=== PATIENT | female | born 1955 | race Hispanic/Latino ===

== ENCOUNTER → 2020-10-31 | Outpatient (CLI) | payer BC | END | disposition home or self-care (01) | LOC: OIH 14:26 | PROVIDERS: ATTEND Internal Medicine | DX: S92.912A Unspecified fracture of left toe(s), initial encounter for closed fracture (principal); M79.89 Other specified soft tissue disorders; X58.XXXA Exposure to other specified factors, initial encounter; Y93.89 Activity, other specified; Y92.89 Other specified places as the place of occurrence of the external cause; Y99.8 Other external cause status | CPT/HCPCS: 73620 ==

== ENCOUNTER 2024-06-21 12:39 | Emergency (ER) | payer BC, MEDICARE ==
[~2024-06-21] VITALS: Ht 160 cm; Wt 78.5 kg
[2024-06-21] MEDS: ASPIRIN 325MG TAB PO ONE (13:20)
[2024-06-21 13:45] LABS: BASOPHILS # (AUTO) 0.05 K/uL (0.00-0.20); BASOPHILS % (AUTO) 0.7 % (0.0-5.0); EOSINOPHILS # (AUTO) 0.21 K/uL (0.00-0.70); EOSINOPHILS % (AUTO) 2.9 % (0.0-8.0); HEMATOCRIT 42.6 % (36-48); IMMATURE GRANULOCYTE ABSOLUTE 0.04 K/uL (0-1); LYMPHOCYTES # (AUTO) 2.7 K/uL (1.0-4.8); LYMPHOCYTES % (AUTO) 36.4 % (21.0-51.0); MEAN CORPUSCULAR HEMOGLOBIN 32.5 pg (27.0-33.0); MEAN CORPUSCULAR HGB CONC 33.8 g/dL (32.0-36.0); MEAN CORPUSCULAR VOLUME 96.2 fL (79-99); MONOCYTES # (AUTO) 0.6 K/uL (0.1-1.0); NEUTROPHILS # (AUTO) 3.8 K/uL (1.8-7.7); NEUTROPHILS % (AUTO) 51.5 % (40.0-77.0); PLATELET COUNT (AUTO) 323 K/uL (130-400); RED BLOOD CELL COUNT(AUTO) 4.43 MIL/uL (4.00-5.50); RED CELL DISTRIBUTION WIDTH 11.6 % (11.0-15.5); WHITE BLOOD COUNT (AUTO) 7.3 K/uL (4.8-10.8)
[2024-06-21 13:53] LABS: CREATININE 0.8 mg/dL (0.5-1.0); POTASSIUM 3.5 mmol/L (3.5-5.1)
[2024-06-21 14:14] LABS: B-TYPE NATRIURETIC PEPTIDE 47 pg/mL (0-100)
[2024-06-21 14:46] LABS: APPEARANCE,URINE CLEAR (CLEAR); BILIRUBIN,URINE NEGATIVE (NEGATIVE); COLOR,URINE COLORLESS (YELLOW); GLUCOSE, URINE (UA) NEGATIVE (NEGATIVE); KETONES,URINE NEGATIVE (NEGATIVE); LEUKOCYTE ESTERASE ,URINE NEGATIVE Leu/uL (NEGATIVE); NITRATE,URINE NEGATIVE (NEGATIVE); OCCULT BLOOD,URINE NEGATIVE (NEGATIVE); PH,URINE 6.5 (5.0-8.0); PROTEIN,URINE NEGATIVE (NEGATIVE); UROBILINOGEN,URINE 0.2 mg/dL (0.2-1.0)
[2024-06-21 14:54] LABS: ADD UA MICROSCOPIC NO
[2024-06-21 15:24] VITALS: RESP 17
[2024-06-21] MEDS: NITROGLYCERIN 0.4 MG SL TAB SL PRN (15:25)
[2024-06-21 17:41] VITALS: BP 120/63; PULSE 63; TEMP 98.4; O2SAT 98
== END 2024-06-21 17:42 | disposition home or self-care (01) ==
LOC: EDH 12:39
DX: R07.89 Other chest pain (principal); Z90.710 Acquired absence of both cervix and uterus
CPT/HCPCS: 36415; 71045; 80048; 81003; 83880; 84484; 85025; 93005

== ENCOUNTER → 2024-06-30 | Outpatient (CLI) | payer BC ==
[~2024-06-30] MED LIST: IOHEXOL 350 MG/ML 100ML INFUS..BTL IV ONE; metoPROLOL tartRATE 1 MG/ML 5ML VIAL IV ONE
== END | disposition home or self-care (01) ==
LOC: RAH 10:26
PROVIDERS: ATTEND Student in an Organized Health Care Education/Training Program
DX: R94.31 Abnormal electrocardiogram [ECG] [EKG] (principal)
CPT/HCPCS: 75574; J3490; Q9967

== ENCOUNTER 2024-08-15 08:30 | Observation (INO) | payer MEDICARE, BC ==
[~2024-08-15] VITALS: Ht 160 cm; Wt 82.6 kg
--- NOTE | 2024-08-15 08:54 | EKG ---
[facility] Test Date: 2024-08-15 Test Time: 08:53:39 Pat Name: DEBI HENSLEY Department: EDH Room: ED Gender: F Environmental Planner: [id number] : [id number] Requested By: UMA ALEXIS Order Number: [id number] Reading MD: Valentín Lay Measurements Intervals [place] Rate: 58 P: 44 CO: 147 QRS: -49 QRSD: 90 T: -6 QT: 419 QTc: 410 Interpretive Statements Sinus rhythm Left anterior fascicular block Compared to ECG 06/21/2024 12:49:06 No significant changes Electronically Signed On 08-15-2024 21:09:32 HONEY LIQUEFIER by Valentín Lay Please click the below link to view image of tracing.
--- NOTE | 2024-08-15 08:58 | NUR ---
PT JUST NOW PLACED IN MY HALLWAY C
[2024-08-15 09:10] LABS: APPEARANCE,URINE CLEAR (CLEAR); BILIRUBIN,URINE NEGATIVE (NEGATIVE); COLOR,URINE COLORLESS (YELLOW); GLUCOSE, URINE (UA) NEGATIVE (NEGATIVE); KETONES,URINE NEGATIVE (NEGATIVE); LEUKOCYTE ESTERASE ,URINE NEGATIVE Leu/uL (NEGATIVE); NITRATE,URINE NEGATIVE (NEGATIVE); OCCULT BLOOD,URINE NEGATIVE (NEGATIVE); PROTEIN,URINE NEGATIVE (NEGATIVE); UROBILINOGEN,URINE 0.2 mg/dL (0.2-1.0)
[2024-08-15 09:11] LABS: ADD UA MICROSCOPIC NO
--- NOTE | 2024-08-15 09:20 | NUR ---
PT JUST NOW RETURNED FROM RADIOLOGY
--- NOTE | 2024-08-15 09:21 | ERN ---
ED Note History of Present Illness Stated Complaint: CHEST PRESSURE, SOB Chief Complaint: Chest Wall Pain Time Seen by MD: 08:21 Allergies: Coded Allergies: No Known Drug Allergies (Unverified Allergy, Intermediate, 06/21/24) Past Medical History Dictation Patient is a 69-year-old female with a past medical history of heart disease who presents to the ED with chest pain that started at 7:30 a.m. patient states she has had some pressure in the chest for several weeks but the pain started today. Patient mentions she sees sees a helpdesk technician who has prescribed her nitroglycerin for chest pain but she did not take it this morning. Patient has a scheduled on September 08, 2024. Patient denies any weakness, radiating pain, nausea, vomiting, fevers, chills. Patient admits to worsening shortness of breath with daily activities. She also has intermittent headaches when exercising. She has a history of smoking but quit 2 years ago. Past Medical History: GERD, Heart Disease Surgical History: Hysterectomy, Other Surgical History Other: CARPAL TUNNEL Review of System Dictation Constitutional-no chills, weight loss/gain, fever Eyes-no injury, pain, redness and discharge ENT-no injury, pain, swelling Cardiovascular no palpitations, edema. Positive for chest pain. Respiratory- no cough, wheezing. Positive for SOB with activity Abdomen/GI-no abdominal pain, diarrhea, constipation, vomiting, nausea Back no injury and pain Genitourinary no injury, bleeding and discharge Musculoskeletal/extremities no injury, deformity Skin no rash, discoloration Neuro-no weakness, numbness, tingling, seizures, tremors. Positive for frontal headaches with exercise Psych-no suicidal ideation, homicidal ideation, hallucinations, depression, anxiety, memory loss Initial Vital Sign VS Vital Signs Date Time Temp Pulse Resp B/P (MAP) Pulse Ox O2 Delivery O2 Flow Rate FiO2 08/15/24 08:32 97.9 71 16 123/76 99 Room Air 0 08/15/24 09:59 21 Physical Exam Dictation General-patient is awake alert and oriented Head/neck-normocephalic, atraumatic Eyes-PERRL, EOMI, vision at baseline Neck-trachea midline, supple, no nuchal rigidity Cardiovascular-RRR, normal S1/S2, no MRG is, no JVD Respiratory-no distress, wheezing, rales, rhonchi Abdomen-no tenderness, guarding, soft, nondistended Skin warm, dry, normal turgor, no rash Musculoskeletal/extremities pulses equal, no cyanosis. No edema Neuro-COA X 4, GCS 15, strength 5/5, CN 2-12 intact Psych-normal behavior, mood and affect normal Results (Laboratory/Radiology) Laboratory/Radiology Laboratory Tests Test 08/15/24 09:01 08/15/24 09:28 Urine Color COLORLESS (YELLOW) Urine Appearance CLEAR (CLEAR) Urine pH 6.0 (5.0-8.0) Urine Specific [place] 1.005 (1.001-1.031) Urine Protein NEGATIVE mg/dL (NEGATIVE) Urine Glucose (UA) NEGATIVE mg/dL (NEGATIVE) Urine Ketones NEGATIVE mg/dL (NEGATIVE) Urine Occult Blood NEGATIVE (NEGATIVE) Urine Nitrate NEGATIVE (NEGATIVE) Urine Bilirubin NEGATIVE mg/dL (NEGATIVE) Urine Urobilinogen 0.2 mg/dL (0.2-1.0) Urine Leukocyte Esterase NEGATIVE Alison/uL White Blood Count 6.5 K/uL (4.8-10.8) Red Blood Count 4.34 MIL/uL (4.00-5.50) Hemoglobin 14.2 g/dL (12.0-16.0) Hematocrit 42.3 % (36-48) Mean Corpuscular Volume 97.5 fL (79-99) Mean Corpuscular Hemoglobin 32.7 pg (27.0-33.0) Mean Corpuscular Hemoglobin Concent 33.6 g/dL (32.0-36.0) Red Cell Distribution Width 11.7 % (11.0-15.5) Platelet Count 313 K/uL (130-400) Mean Platelet Volume 10.8 fL (7.5-10.5) H Immature Granulocyte % (Auto) 0.3 % (0-1) Neutrophils (%) (Auto) 58.3 % (40.0-77.0) Lymphocytes (%) (Auto) 30.0 % (21.0-51.0) Monocytes (%) (Auto) 7.6 % (3.0-13.0) Eosinophils (%) (Auto) 3.2 % (0.0-8.0) Basophils (%) (Auto) 0.6 % (0.0-5.0) Neutrophils # (Auto) 3.8 K/uL (1.8-7.7) Lymphocytes # (Auto) 2.0 K/uL (1.0-4.8) Monocytes # (Auto) 0.5 K/uL (0.1-1.0) Eosinophils # (Auto) 0.21 K/uL (0.00-0.70) Basophils # (Auto) 0.04 K/uL (0.00-0.20) Absolute Immature Granulocyte (auto 0.02 K/uL (0-1) Nucleated Red Blood Cells 0.0 % (0.0-0.19) Sodium Level 141 mmol/L (136-145) Potassium Level 4.1 mmol/L (3.5-5.1) Chloride Level 107 mmol/L (101-111) Carbon Dioxide Level 29 mmol/L (21-32) Blood Urea Nitrogen 12 mg/dL (7-18) Creatinine 0.8 mg/dL (0.5-1.0) Glomerular Filtration Rate Calc 81 mL/min (>90) Random Glucose 95 mg/dL (70-105) Total Calcium 9.7 mg/dL (8.5-10.1) Troponin I High Sensitivity 4 ng/L (4-50) Labs Reviewed?: Yes EKG Comment: EKG obtained 08/15/2024 at 08:53:39 Sinus rhythm Rate [address] elevations/depressions X-RAY Comment: CXR FINDINGS: A frontal projection of the chest was obtained. No acute pulmonary infiltrates is seen. The heart is borderline enlarged. There is mild dextroscoliosis. Degenerative changes are seen. No evidence of aortic calcification is seen. IMPRESSION: 1. No acute pulmonary infiltrate is seen. ED Course ED Course Orders Procedure Category Date Status Time Cbc With Differential LAB 08/15/24 Complete 08:37 Basic Metabolic Panel LAB 08/15/24 Complete 08:37 Troponin I High LAB 08/15/24 Complete Sensitivity 08:37 12 Lead Ekg Tracing- EKG 08/15/24 Complete Technical 08:37 Chest 1vw RAD 08/15/24 Resulted 08:37 Urinalysis Profile LAB 08/15/24 Complete 08:37 Nitroglycerin 0.4mg PHA 08/15/24 In Process Sl Tab (Nitrostat) 09:00 Troponin I High LAB 08/15/24 Logged Sensitivity 10:31 Aspirin 325mg Tab PHA 08/15/24 Complete (Aspirin 325mg Tab) 11:00 Current Medications Medications (Trade) Dose Ordered Sig/Igor Route PRN Reason Start Time Stop Time Status Last Admin Dose Admin Aspirin (Aspirin 325mg Tab) 325 mg ONCE ONCE PO 08/15/24 11:00 08/15/24 11:01 DC Nitroglycerin (Nitrostat) 0.4 mg AD PRN SL CHEST PAIN 08/15/24 09:00 09/14/24 08:59 Vital Signs Date Time Temp Pulse Resp B/P (MAP) Pulse Ox O2 Delivery O2 Flow Rate FiO2 08/15/24 09:59 63 17 119/59 100 Room Air* 0 21 08/15/24 08:32 97.9 71 16 123/76 99 Room Air 0 HEART Score Response (Comments) Value History: High suspicion (+2) 2 EKG: Repolarization changes 1 Age: > 65yrs (+2) 2 Risk Factors: 3+ risk factors (+2) 2 Initial Troponin: Normal limit (0) 0 HEART Score Risk: High Risk for MACE (7-10) Total 7 Medical Decision Making MDM MDM INITIAL IMPRESSION Initial history and physical concerning for chest pain Contributing medical problems: Heart disease I have reviewed the triage nursing notes and vital signs. Initial plan: Laboratory evaluation EKG, CXR DATA REVIEW I have reviewed additional NN, repeat VS, and monitoring where indicated. Heart rate, blood pressure, and O2 saturation are acceptable. [place] diagnostic results: Troponin 4 Other independent historian: Review of external data: ED COURSE Interventions: ASA, SL nitro Reassessment: Chest pain resolved 1109- Dr. Mak consult, accepts patient for admission 111- Dr. Dang Esquivel Cardiology consult DISPOSITION Final diagnostic impression: High risk of major adverse cardiac event I discussed my findings, clinical impression and treatment recommendations with the patient. My final plan for disposition was made based upon -mild risk of complications and potential morbidity of the patient's condition. -Discussion with the patient regarding management options. Patient will be admitted for further evaluation of chest pain Critical Care Note Critical Time: other (Total critical care time was 33 minutes. Excluding time for procedures. Management of critically ill patient with concern for acute decompensation. Management included interpretation of laboratory values and imaging, hemodynamics, time for consultation with consultants and admitting physician.) DX & DISP Disposition: Inpatient Decision to Admit Date: Aug 15, 2024 Decision to Admit Time: 10:46 Departure Impression: Primary Impression: High risk of cardiac event Additional Impressions: Heart disease, Chest pain, CAD (coronary artery disease) Condition: Stable Referrals: ISMAEL PEARCE MD (PCP) I have reviewed, & agreed with my scribe's, documentation. (Entered by Maritza Kraft, acting as a scribe for Dr. Alexis) I have reviewed the case I have examined patient I personally scribed for UMA ALEXIS MD (JAMIL) on 08/15/24 at 11:15. Electronically submitted by Maritza Kraft ([employer]). I personally scribed for UMA ALEXIS MD (JAMIL) on 08/15/24 at 11:16. Electronically submitted by Maritza Kraft ([employer]). SOLIS ERNANDEZ MD Aug 15, 2024 09:21 UMA ALEXIS MD Aug 15, 2024 11:15
--- NOTE | 2024-08-15 09:50 | HMCIMG ---
CHEST 1VW HISTORY: Chest pain COMPARISON: 06/21/2024 FINDINGS: A frontal projection of the chest was obtained. No acute pulmonary infiltrates is seen. The heart is borderline enlarged. There is mild dextroscoliosis. Degenerative changes are seen. No evidence of aortic calcification is seen. IMPRESSION: 1. No acute pulmonary infiltrate is seen.
[2024-08-15 09:52] LABS: BASOPHILS # (AUTO) 0.04 K/uL (0.00-0.20); BASOPHILS % (AUTO) 0.6 % (0.0-5.0); EOSINOPHILS # (AUTO) 0.21 K/uL (0.00-0.70); EOSINOPHILS % (AUTO) 3.2 % (0.0-8.0); HEMATOCRIT 42.3 % (36-48); IMMATURE GRANULOCYTE ABSOLUTE 0.02 K/uL (0-1); MEAN CORPUSCULAR HEMOGLOBIN 32.7 pg (27.0-33.0); MEAN CORPUSCULAR HGB CONC 33.6 g/dL (32.0-36.0); MEAN CORPUSCULAR VOLUME 97.5 fL (79-99); MONOCYTES # (AUTO) 0.5 K/uL (0.1-1.0); MONOCYTES % (AUTO) 7.6 % (3.0-13.0); NEUTROPHILS # (AUTO) 3.8 K/uL (1.8-7.7); NEUTROPHILS % (AUTO) 58.3 % (40.0-77.0); PLATELET COUNT (AUTO) 313 K/uL (130-400); RED BLOOD CELL COUNT(AUTO) 4.34 MIL/uL (4.00-5.50); RED CELL DISTRIBUTION WIDTH 11.7 % (11.0-15.5); WHITE BLOOD COUNT (AUTO) 6.5 K/uL (4.8-10.8)
[2024-08-15 10:09] LABS: CREATININE 0.8 mg/dL (0.5-1.0); POTASSIUM 4.1 mmol/L (3.5-5.1)
--- NOTE | 2024-08-15 11:40 | NUR ---
CARDIOLOGY CONSULT: DIDIER MORRISSEY HERE TO ASSESS/INTERVIEW PT.
[2024-08-15] MEDS: ENOXAPARIN SODIUM 80 MG/0.8 ML SQ ONE (12:24)
[2024-08-15] MEDS: ASPIRIN 325MG TAB PO ONE (12:25)
--- NOTE | 2024-08-15 12:30 | NUR ---
PT REFUSED LUNCH TRAY AT THIS TIME.
--- NOTE | 2024-08-15 12:38 | CONS ---
[facility] CARDIOLOGY CONSULTATION REPORT Date Patient Seen: Aug 15, 2024 Time of Visit: 12:23 Requesting Physician: Nicolas Mak MD Reason for Consultation: Chest pain, CAD History of Present Illness: This is a 69-year-old Latin-Syrian female with a history of 50 year history of tobacco use (quit 2-1/2 years ago), more recently identified to have an abnormal Lexiscan Cardiolite stress test approximately 03/31/2024 demonstrating a large area of perfusion defect in the inferior wall with a gated EF of 88% and a heavily calcified proximal RCA by CT coronary angiogram on 06/30/2024 presented to the emergency department due to sharp stabbing left-sided chest pain. This morning, she walked about 20 ft to her truck and developed sharp left-sided chest pain about 3 episodes duration lasting only about a second each. Her symptoms resolved. She turned on her truck and when she got off the truck, she again had 3 sharp stabbing pains to the left side of her chest but developed shortness of breath. Her shortness of breath lasted about 10-15 minutes. There was no associated chest pressure, diaphoresis, nausea, vomiting, palpitations, near-syncope or syncope. She presented to the ER for further assessment due to her history of chest pain recently. She reports that she has had recent substernal chest discomfort described as chest pressure, nonradiating with minimal activities around her home or ambulating short distances with the associated dyspnea. This prompted the above studies including the CT coronary angiogram. She is scheduled for left heart catheterization 09/08/2023. She has had symptoms of chest pressure almost daily with her last episode occurring on 08/13/2024 requiring 1 nitroglycerin on 2 separate occasions. She denies any prior history of FL, diabetes, CVA, hyperlipidemia, or GI bleeding tendencies. An EKG in the emergency department has demonstrated a normal sinus rhythm with left anterior fascicular block pattern and nonspecific T-wave changes and a heart rate of 58 beats per minute. Labs were remarkable for a troponin of 4 and a repeat troponin of 4, CBC and basic metabolic panel were unremarkable. A chest x-ray demonstrates borderline cardiomegaly but no CHF. Past Medical History: Fifty year history of tobacco use, quit 2-1/2 years ago Past Surgical History: Left carpal tunnel surgery 2022 Right carpal tunnel surgery October 20, 2022 Partial hysterectomy 1988 Family History: Mother with history of CAD Social History: The patient lives with spouse. 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 Habits: Former 50 year history of tobacco use. Occasional alcohol consumption. Denies illicit drug use Home Meds: None Review of Systems: CONST: No fever, fatigue, or weight changes. EYES: No recent vision problems. ENT: No congestion, ear pain, or sore throat. C/V: Chest pain as per HPI. Dyspnea on exertion. No palpitations, or edema. RESP: No cough, congestion, wheezing or shortness of breath. GI: No abdominal pain, nausea, vomiting, constipation, or diarrhea. : No incontinence or dysuria. SKIN: No rash. NEURO: No headache, focal numbness or weakness, dizziness, or seizures. PSYCH: No depression or anxiety. HEME: No abnormal bruising or bleeding. LYMPH: No swollen glands. Physical Examination: GENERAL: No acute distress. HEAD: Normal with no signs of head trauma. EYES: PERRLA, EOMI, conjunctiva and sclera normal. ENT: Hearing grossly intact, normal oropharynx. NECK: Supple without JVD. There is no tenderness, lymphadenopathy, or masses. No thyromegaly. Normal carotid upstrokes without bruits. LUNGS: Clear breath sounds bilaterally. No wheezes, or rhonchi. HEART: Normal rate and rhythm. Normal S1 and S2 without murmurs, gallop or rub. VASC: Peripheral pulses +2 bilaterally. ABD: Bowel sounds normal, soft, nontender, no masses, no organomegaly. No audible bruits. : Not examined LYMPH: No lymphadenopathy noted. EXT: No clubbing, cyanosis or edema. SKIN: No rashes or lesions noted. NEURO: Awake, alert, and oriented x3. No focal sensory or strength deficits noted. Vital Signs (last 8hr) Date Time Temp Pulse Resp B/P (MAP) Pulse Ox O2 Delivery O2 Flow Rate FiO2 08/15/24 09:59 63 17 119/59 100 Room Air* 0 21 08/15/24 08:32 97.9 71 16 123/76 99 Room Air 0 Laboratory: Hematology Labs: Test 08/15/24 09:28 Range/Units White Blood Count 6.5 4.8-10.8 K/uL Red Blood Count 4.34 4.00-5.50 MIL/uL Hemoglobin 14.2 12.0-16.0 g/dL Hematocrit 42.3 36-48 % Mean Corpuscular Volume 97.5 79-99 fL Mean Corpuscular Hemoglobin 32.7 27.0-33.0 pg Mean Corpuscular Hemoglobin Concent 33.6 32.0-36.0 g/dL Red Cell Distribution Width 11.7 11.0-15.5 % Platelet Count 313 130-400 K/uL Mean Platelet Volume 10.8 H 7.5-10.5 fL Immature Granulocyte % (Auto) 0.3 0-1 % Neutrophils (%) (Auto) 58.3 40.0-77.0 % Lymphocytes (%) (Auto) 30.0 21.0-51.0 % Monocytes (%) (Auto) 7.6 3.0-13.0 % Eosinophils (%) (Auto) 3.2 0.0-8.0 % Basophils (%) (Auto) 0.6 0.0-5.0 % Neutrophils # (Auto) 3.8 1.8-7.7 K/uL Lymphocytes # (Auto) 2.0 1.0-4.8 K/uL Monocytes # (Auto) 0.5 0.1-1.0 K/uL Eosinophils # (Auto) 0.21 0.00-0.70 K/uL Basophils # (Auto) 0.04 0.00-0.20 K/uL Absolute Immature Granulocyte (auto 0.02 0-1 K/uL Nucleated Red Blood Cells 0.0 0.0-0.19 % Chemistry Labs: Test 08/15/24 11:23 08/15/24 09:28 Range/Units Troponin I High Sensitivity < 4 L 4-50 ng/L Sodium Level 141 136-145 mmol/L Potassium Level 4.1 3.5-5.1 mmol/L Chloride Level 107 101-111 mmol/L Carbon Dioxide Level 29 21-32 mmol/L Blood Urea Nitrogen 12 7-18 mg/dL Creatinine 0.8 0.5-1.0 mg/dL Glomerular Filtration Rate Calc 81 >90 mL/min Random Glucose 95 70-105 mg/dL Total Calcium 9.7 8.5-10.1 mg/dL Diagnostics / Radiology: Chest x-ray 08/15/2024 demonstrated borderline cardiomegaly, no CHF Impression and Plan: Atypical chest pain on presentation: Exertional angina pectoris and dyspnea on exertion: Abnormal Lexiscan Cardiolite stress test approximately 03/31/2024 demonstrating moderate inferior defect with a gated EF of 88%: Coronary artery disease with abnormal heart Saver CT coronary angiogram 06/30/2024 demonstrating heavily calcified proximal RCA : -The patient has ruled out for acute myocardial ischemia thus far with no evidence of ischemia on EKG, and 2- high sensitivity troponins within normal limits -she has experienced substernal chest pressure almost daily requiring use of sub lingual nitroglycerin suggestive of unstable angina -begin aspirin 325 mg p.o. daily, begin atorvastatin 40 mg p.o. daily -obtain a lipid panel to assess her lipid status -we will proceed with plans for invasive cardiac assessment while inpatient to define her coronary anatomy. Risks, benefits and alternatives of heart catheterization included but not limited to 0.1% risk of [place], stroke or have been discussed and she wishes to proceed -we will keep the patient NPO after midnight with plans to proceed with cardiac catheterization in a.m. PHYSICIAN ATTESTATION OF PHYSICIAN HAMMER DRIVER DOCUMENTATION: I attest that I was physically present for the rider portions of the service and evaluated the patient with the Physician [employer] Industrial [employer] Teacher, and I reviewed and discussed the case with the Physician [employer] Industrial Arts Teacher and made modifications to the Physician [employer] Industrial Arts Teacher's findings and plans of care as documented above DIDIER DAVIDSON Aug 15, 2024 12:38 EMILY HUBER MD Aug 16, 2024 10:22
--- NOTE | 2024-08-15 12:45 | NUR ---
CARDIOLOGY CONSULT: DIDIER MORRISSEY RETURNED AND STATED THAT SHE WOULD PLACE ORDERS FOR A HEART CATH FOR TOMORROW.
--- NOTE | 2024-08-15 12:51 | NUR ---
DR PEREZ HERE TO SEE THE PT
[2024-08-15 13:09] LABS: INR <= 0.93 (0.85-1.15); PROTHROMBIN TIME 10.3 SEC (9.6-11.6)
[2024-08-15 13:11] LABS: PARTIAL THROMBOPLASTIN TIME 28.7 SEC (26.3-35.5)
[2024-08-15 13:15] LABS: CHOLESTEROL 213 mg/dL (<200); HDL CHOLESTEROL 88 mg/dL (35-85); LDL DIRECT 100 mg/dL (0-99); TRIGLYCERIDES 102 mg/dL (30-200)
--- NOTE | 2024-08-15 14:16 | NUR ---
REPORT ENDORSED TO BET RN
[2024-08-15] MEDS: atorVAStatin 40 MG TABLET PO SCH (20:50)
--- NOTE | 2024-08-16 02:05 | HP ---
HISTORY OF PRESENT ILLNESS: This is a patient of Dr. Valladares, who came to the emergency room complaining of chest pain, pressure type that had been bothering her for the last few weeks. She was seen by doctor, clinical massage therapist. The patient apparently has had recent workup and is scheduled to have an angiogram on 09/08/2024. The patient also is complaining of shortness of breath with minimal effort. REVIEW OF SYSTEMS: No fever, chills, seizures, loss of consciousness. No diplopia, dysarthria, dysphonia or dysphagia. No sore throat. No cough, wheezes, or rhonchi. The patient is complaining of chest pain at rest, midsternal, associated with shortness of breath with minimal activity. No abdominal pain. No nausea, vomiting, or diarrhea. No dysuria, urgency, or frequency. No rashes, petechiae or ecchymoses. No hallucinations or delusions. No suicidal ideation. No weakness, numbness, tingling, or tremors. PAST MEDICAL HISTORY: Coronary artery disease and GERD. ALLERGIES: No known drug allergies. MEDICATIONS: As indicated in the chart. PHYSICAL EXAMINATION: GENERAL: She is awake, alert, oriented in person, time, and place, comfortable, sitting in wheelchair in the emergency room, awake, alert, oriented in person, time, and place, not in distress. VITAL SIGNS: In the chart. HEENT: Normocephalic, atraumatic. LUNGS: Clear to auscultation. HEART: S1, S2 are distant. ABDOMEN: Soft and nontender. No masses. EXTREMITIES: No clubbing or cyanosis. No edema. LABORATORY, DIAGNOSTIC AND IMAGING DATA: Urinalysis within normal limits. WBC count 6.5, hemoglobin 14.2, platelets 313. Sodium 141, potassium 4.1, creatinine 0.8. Troponin 4. EKG was reported as sinus rhythm, 58 per minute, no ST elevation or depression. Chest x-ray without any acute infiltrates or effusions. ASSESSMENT AND PLAN: Chest pain. The patient apparently on recent workup by clinical massage therapist pending cardiac catheterization in the near future. We are going to start her on standard treatment for acute coronary syndrome, have a Cardiology consultation. Follow recommendations by Cardiology. The patient will be transferred to Dr. Valladares's care for primary. Continue with trending cardiac enzymes. Follow up in a.m. with laboratories. DOS: 08/15/2024 TID: [id number] RECEIPT: [id number] MTDD
[2024-08-16 07:08] LABS: BASOPHILS # (AUTO) 0.04 K/uL (0.00-0.20); BASOPHILS % (AUTO) 0.7 % (0.0-5.0); EOSINOPHILS # (AUTO) 0.27 K/uL (0.00-0.70); EOSINOPHILS % (AUTO) 4.5 % (0.0-8.0); HEMATOCRIT 41.2 % (36-48); IMMATURE GRANULOCYTE ABSOLUTE 0.02 K/uL (0-1); LYMPHOCYTES # (AUTO) 2.1 K/uL (1.0-4.8); LYMPHOCYTES % (AUTO) 34.2 % (21.0-51.0); MEAN CORPUSCULAR HEMOGLOBIN 32.3 pg (27.0-33.0); MEAN CORPUSCULAR VOLUME 97.9 fL (79-99); MONOCYTES # (AUTO) 0.5 K/uL (0.1-1.0); MONOCYTES % (AUTO) 7.9 % (3.0-13.0); NEUTROPHILS # (AUTO) 3.2 K/uL (1.8-7.7); NEUTROPHILS % (AUTO) 52.4 % (40.0-77.0); PLATELET COUNT (AUTO) 301 K/uL (130-400); RED BLOOD CELL COUNT(AUTO) 4.21 MIL/uL (4.00-5.50); RED CELL DISTRIBUTION WIDTH 11.9 % (11.0-15.5); WHITE BLOOD COUNT (AUTO) 6.1 K/uL (4.8-10.8)
[2024-08-16 07:30] LABS: ALBUMIN 3.1 g/dL (3.5-5.0); BILIRUBIN,TOTAL 0.3 mg/dL (0.2-1.0); CREATININE 0.8 mg/dL (0.5-1.0); POTASSIUM 4.2 mmol/L (3.5-5.1); TOTAL PROTEIN, SERUM 6.4 g/dL (6.0-8.3)
--- NOTE | 2024-08-16 08:32 | PN ---
[facility] CARDIOLOGY PROGRESS NOTE Date Patient Seen: Aug 16, 2024 Time of Visit: 08:30 Interval History: [She reported 2 minutes of chest pressure this morning. ] Physical Examination: GENERAL: [No acute distress.] HEAD: [Normal with no signs of head trauma.] EYES: [PERRLA, EOMI, conjunctiva and sclera normal.] ENT: [Hearing grossly intact, normal oropharynx.] NECK: [Supple without JVD. There is no tenderness, lymphadenopathy, or masses. No thyromegaly. Normal carotid upstrokes without bruits.] LUNGS: [Clear breath sounds bilaterally. There are right basilar rales one third of the way up the chest. No wheezes, or rhonchi.] HEART: [Normal rate and rhythm. Normal S1 and S2 without mumurs, gallop or rub.] VASC: [Peripheral pulses +2 bilaterally.] ABD: [Bowel sounds normal, soft, nontender, no masses, no organomegaly. No audible bruits.] : [Not examined] LYMPH: [No lymphadenopathy noted.] EXT: [No clubbing, cyanosis or edema.] SKIN: [No rashes or lesions noted.] NEURO: [Awake, alert, and oriented x3. No focal sensory or strength deficits noted.] Laboratory: [ ] Hematology Labs: Test 08/16/24 06:26 Range/Units White Blood Count 6.1 4.8-10.8 K/uL Red Blood Count 4.21 4.00-5.50 MIL/uL Hemoglobin 13.6 12.0-16.0 g/dL Hematocrit 41.2 36-48 % Mean Corpuscular Volume 97.9 79-99 fL Mean Corpuscular Hemoglobin 32.3 27.0-33.0 pg Mean Corpuscular Hemoglobin Concent 33.0 32.0-36.0 g/dL Red Cell Distribution Width 11.9 11.0-15.5 % Platelet Count 301 130-400 K/uL Mean Platelet Volume 11.0 H 7.5-10.5 fL Immature Granulocyte % (Auto) 0.3 0-1 % Neutrophils (%) (Auto) 52.4 40.0-77.0 % Lymphocytes (%) (Auto) 34.2 21.0-51.0 % Monocytes (%) (Auto) 7.9 3.0-13.0 % Eosinophils (%) (Auto) 4.5 0.0-8.0 % Basophils (%) (Auto) 0.7 0.0-5.0 % Neutrophils # (Auto) 3.2 1.8-7.7 K/uL Lymphocytes # (Auto) 2.1 1.0-4.8 K/uL Monocytes # (Auto) 0.5 0.1-1.0 K/uL Eosinophils # (Auto) 0.27 0.00-0.70 K/uL Basophils # (Auto) 0.04 0.00-0.20 K/uL Absolute Immature Granulocyte (auto 0.02 0-1 K/uL Nucleated Red Blood Cells 0.0 0.0-0.19 % Chemistry Labs: Test 08/16/24 06:26 08/15/24 11:23 08/15/24 09:28 Range/Units Sodium Level 143 136-145 mmol/L Potassium Level 4.2 3.5-5.1 mmol/L Chloride Level 110 101-111 mmol/L Carbon Dioxide Level 28 21-32 mmol/L Blood Urea Nitrogen 20 H 7-18 mg/dL Creatinine 0.8 0.5-1.0 mg/dL Glomerular Filtration Rate Calc 81 >90 mL/min Random Glucose 105 70-105 mg/dL Total Calcium 9.4 8.5-10.1 mg/dL Total Bilirubin 0.3 0.2-1.0 mg/dL Aspartate Amino Transf (AST/SGOT) 18 10-37 U/L Alanine Aminotransferase (ALT/SGPT) 14 12-78 U/L Alkaline Phosphatase 114 50-136 U/L Total Protein 6.4 6.0-8.3 g/dL Albumin 3.1 L 3.5-5.0 g/dL Troponin I High Sensitivity < 4 L 4-50 ng/L Triglycerides Level 102 30-200 mg/dL Cholesterol Level 213 H <200 mg/dL LDL Cholesterol 100 H 0-99 mg/dL HDL Cholesterol 88 H 35-85 mg/dL Coagulation Labs: Test 08/15/24 09:28 Range/Units Prothrombin Time 10.3 9.6-11.6 SEC Prothromb Time International Ratio <= 0.93 0.85-1.15 Activated Partial Thromboplast Time 28.7 26.3-35.5 SEC Diagnostics / Radiology: [Copy/Paste Echos/Imaging Report here] Impression and Plan: [ Atypical chest pain on presentation: Exertional angina pectoris and dyspnea on exertion: Abnormal Lexiscan Cardiolite stress test approximately 03/31/2024 demonstrating moderate inferior defect with a gated EF of 88%: Coronary artery disease with abnormal heart Saver CT coronary angiogram 06/30/2024 demonstrating heavily calcified proximal RCA : -The patient has ruled out for acute myocardial ischemia thus far with no evidence of ischemia on EKG, and 2- high sensitivity troponins within normal limits -she has experienced substernal chest pressure almost daily requiring use of sublingual nitroglycerin suggestive of unstable angina -begin aspirin 325 mg p.o. daily, begin atorvastatin 40 mg p.o. daily -08/16 LDL 100, HDL 88, TG 102, Chol 213 -we will proceed with plans for invasive cardiac assessment while inpatient to define her coronary anatomy. Risks, benefits and alternatives of heart catheterization included but not limited to 0.1% risk of [place], stroke or have been discussed and she wishes to proceed -we will keep the patient NPO after midnight with plans to proceed with cardiac catheterization this ha Esquivel MD] FUNMILAYO ESQUIVEL MD Aug 16, 2024 08:32
[2024-08-16] MEDS: ASPIRIN 325MG TAB PO SCH (09:00)
[2024-08-16] MEDS: ENOXAPARIN SODIUM 40 MG/0.4 ML SYRINGE SQ SCH (09:00)
[2024-08-16] MEDS ORDERED: cloPIDOgrel 75MG TAB PO SCH (09:00)
[2024-08-16] MEDS: NITROGLYCERIN 0.4 MG SL TAB SL PRN (13:36)
[2024-08-16] MEDS ORDERED: NITR0.4T50 SL (13:57)
--- NOTE | 2024-08-16 15:47 | NUR ---
DCP: HOME Pt lives independently at home with her Jonathan Benavidez [id number]. Pt denies need for assist with ADLS, DME or in home care services. PCP is Leslee Valladares and uses [facility] for rx. Denies dc need and will return home at dc Addendum: 08/16/24 at 1547 by CLAUDIA ROUSE SS Amended: Links added.
[2024-08-16] MEDS ORDERED: LIDOCAINE HCL 400MG/20ML VIAL ONE (15:58)
[2024-08-16] MEDS ORDERED: SODIUM BICARB 50MEQ 50ML VIAL 50 ML ONE (15:59)
[2024-08-16] MEDS ORDERED: IOHEXOL 350 MG/ML 100ML INFUS..BTL IV ONE (15:59)
[2024-08-16] MEDS ORDERED: niCARDIpine 25MG INJ IV ONE (15:59)
[2024-08-16] MEDS ORDERED: HEParin 10,000 UNIT/10ML (1,000 UNIT/ML) VIAL ONE (15:59)
[2024-08-16] MEDS ORDERED: NITROGLYCERIN 50MG VIAL ONE (15:59)
[2024-08-16] MEDS ORDERED: HEParin-NS 1,000 UNIT/500 ML 1,000 ML IV ONE (15:59)
[2024-08-16] MEDS ORDERED: IOHEXOL-350 50ML VIAL IV ONE (15:59)
--- NOTE | 2024-08-16 16:03 | NUR ---
PT TRANSFERRED TO [facility] BY JAKE BENTON AT 1600, PT STABLE NO DISTRESS VITALS WNL NO C/O PAIN NOW. PT PERSONAL BELONGINGS TAKEN WITH JAKE BENTON.
[2024-08-16] MEDS ORDERED: BIVALIRUDIN 250 MG/VIAL IV ONE ×2 (16:14→17:29)
[2024-08-16] MEDS ORDERED: MIDAZOLAM HCL 1 MG/ML 2ML VIAL ONE (16:15)
[2024-08-16] MEDS ORDERED: FENTanyl CITRate PF 50 MCG/1 ML 2ML VIAL ONE (16:15)
[2024-08-16] MEDS ORDERED: TICAGrelor 90 MG TABLET ONE (17:00)
[2024-08-16] MEDS ORDERED: ATROPINE 1MG SYG IVP ONE (17:05)
[2024-08-16] MEDS ORDERED: HEParin-NS 1,000 UNIT/500 ML 500 ML IV ONE (17:22)
[2024-08-16] MEDS ORDERED: ASPIRIN 325MG EC TAB PO ONE (17:58)
--- NOTE | 2024-08-16 18:19 | PRN ---
LEFT HEART CATHETERIZATION, LEFT VENTRICULAR CINEANGIOGRAM, CORONARY ARTERIOGRAM, RIGHT CORONARY SHOCKWAVE LITHOTRIPSY, RIGHT CORONARY DRUG-ELUTING STENT IMPLANT, RIGHT INTRA CORONARY ULTRASOUND INDICATION: DISABLING ANGINA PECTORIS WITH CTA SUGGESTION OF RIGHT CORONARY STENOSIS TECHNIQUE: Patient was brought to the lab in a fasting state after informed consent and sedated with 1 mg Versed and 50 mcg fentanyl. Additional fentanyl was required during the procedure. Under local anesthesia with 1% lidocaine using micropuncture technique under fluoroscopic and ultrasound guidance, the right common femoral artery was punctured anteriorly and a six Afghan sheath was inserted. Left heart catheterization was carried out with a six Afghan angled pigtail and left ventricular cineangiography was performed in PEÑA projection. A pullback recording was obtained. An exchange was made for a six Afghan 4 cm right Caren with which we engaged the right coronary obtain right coronary angiograms in multiple projections. An exchange was made for a six Afghan 4 cm left Caren with which we engaged the left coronary obtain left coronary angiograms in multiple projections. Images were studied and preparation was made for intervention. The patient was treated with Angiomax according to protocol and 180 mg Brilinta and 325 mg aspirin were administered orally. The right coronary was cannulated with a 4 cm six Afghan a RT guide and we attempted to wire with a: Fiancee guidewire. This was unsuccessful so we exchanged for an extra-support Maintenance Planner wire with which we successfully wired the vessel. Using a GuideLiner we were able to advance a 1.5 mm balloon across the stenosis and dilate to 14 atmospheres but we had difficulty advancing a 2 mm balloon, which we acco mplished with some difficulty. We again pre-dilated. At this point we still could not advance a 4 mm shockwave balloon so we again pre-dilated with a 2.5 mm balloon. At this point we were able to advance a 4 mm shockwave and we treated with a total of 120 pulses. The last 70 pulses were administered at a nine atmosphere balloon pressure. At that point we are able to advance the GuideLiner through the lesion and we positioned a liz catheter to assess vessel diameter and condition of treated vessel. There was a minimal dissection at the edge of a heavily calcified lesion which was bulky and eccentric and at some points there was 270 calcification that had been successfully treated with a 2.5 x 3 mm MLD on a vessel that appeared to have a mean diameter of about 4 mm. The actual media was more like 5 mm diameter. We exchanged for a 4 x 18 mm Medtronic denver [place] drug-eluting stent which was deployed at a maximum pressure of 18 atmospheres. Results were reinspected and the vessel appeared properly treated. The guide and all other apparatus were removed and femoral arterial closure was accomplished with Perclose. No complications occurred; the patient was transferred from the lab in stable condition, having received 150 mL contrast. Results: Hemodynamics: LVEDP was 14 before ventriculography and 20 after. LV systolic pressure was 128 with aortic root pressure 130/60, mean 90. Ventriculography: Left ventricular cineangiography demonstrates hyperdynamic left ventricular function was 70% ejection fraction and normal wall motion. Mitral valve is competent. Coronary Arteriography: This is a right-dominant system. The right coronary is a very large vessel which supplies a large posterior descending and two large posterolateral. Proximal to the right ventricular marginal branch there is an eccentric heavily calcified 95-98% stenosis producing NACHO two flow. The left main is free of disease. The left anterior descending supplies a large diagonal and then bifurcates near the apex display a 2nd diagonal and distal branch. The left anterior descending is free of disease. The left circumflex supplies a tiny 1st obtuse marginal and then continues as a large lateral branch to the apex. The circumflex is free of disease. Intervention: 95-98% calcified eccentric mid vertical right coronary stenosis is reduced to a 0% residual with smooth intima and excellent strut apposition. NACHO three flow is established. Intravascular Ultrasound: This is an irregular but large caliber vessel with an average luminal diameter of about 4 mm through the vertical portion, tapering to about 3.5-3.8 mm before the PDA. Post stent results demonstrate a 3.8 mm MLD with excellent strut apposition and no exposed dissections or filling defects. Conclusions: Single-vessel coronary disease, super dominant right coronary, successful shockwave lithotripsy and drug-eluting stent to the right coronary. GRUPO CARVALHO MD Aug 16, 2024 18:19
--- NOTE | 2024-08-16 18:35 | NUR ---
TRANSFER pt transferred from [facility] lab to room 224 via bed pt awake alert right femoral dressing clean dry intact site soft non tender ,pulses present joey pedal pulses present
[2024-08-16] MEDS: 0.9%NACL 1000ML 1,000 ML IV SCH (19:00)
[2024-08-16 20:00] VITALS: O2SAT 97
[2024-08-16 21:06] VITALS: PULSE 18
--- NOTE | 2024-08-16 22:22 | PN ---
PROGRESS NOTE PROGRESS NOTE DATE OF PROGRESS NOTE: 08/16/24 SUBJECTIVE: no more chest pains VITAL SIGNS Vital Signs Date Time Temp Pulse Resp B/P (MAP) Pulse Ox O2 Delivery O2 Flow Rate FiO2 08/16/24 21:06 18 08/16/24 12:07 98.2 16 118/63 99 Room Air* 0 21 PHYSICAL EXAM: GENERAL: [No acute distress.] HEAD: [Normal with no signs of head trauma.] EYES: [PERRLA, EOMI, conjunctiva and sclera normal.] ENT: [Hearing grossly intact, normal oropharynx.] NECK: [Supple without JVD. There is no tenderness, lymphadenopathy, or masses. No thyromegaly. Normal carotid upstrokes without bruits.] LUNGS: [Clear breath sounds bilaterally. There are right basilar rales one third of the way up the chest. No wheezes, or rhonchi.] HEART: [Normal rate and rhythm. Normal S1 and S2 without mumurs, gallop or rub.] VASC: [Peripheral pulses +2 bilaterally.] ABD: [Bowel sounds normal, soft, nontender, no masses, no organomegaly. No audible bruits.] : [Not examined] LYMPH: [No lymphadenopathy noted.] EXT: [No clubbing, cyanosis or edema.] SKIN: [No rashes or lesions noted.] NEURO: [Awake, alert, and oriented x3. No focal sensory or strength deficits noted.] LABORATORY: Laboratory Result(s) Test 08/16/24 06:26 White Blood Count 6.1 K/uL (4.8-10.8) Red Blood Count 4.21 MIL/uL (4.00-5.50) Hemoglobin 13.6 g/dL (12.0-16.0) Hematocrit 41.2 % (36-48) Mean Corpuscular Volume 97.9 fL (79-99) Mean Corpuscular Hemoglobin 32.3 pg (27.0-33.0) Mean Corpuscular Hemoglobin Concent 33.0 g/dL (32.0-36.0) Red Cell Distribution Width 11.9 % (11.0-15.5) Platelet Count 301 K/uL (130-400) Mean Platelet Volume 11.0 fL (7.5-10.5) Immature Granulocyte % (Auto) 0.3 % (0-1) Neutrophils (%) (Auto) 52.4 % (40.0-77.0) Lymphocytes (%) (Auto) 34.2 % (21.0-51.0) Monocytes (%) (Auto) 7.9 % (3.0-13.0) Eosinophils (%) (Auto) 4.5 % (0.0-8.0) Basophils (%) (Auto) 0.7 % (0.0-5.0) Neutrophils # (Auto) 3.2 K/uL (1.8-7.7) Lymphocytes # (Auto) 2.1 K/uL (1.0-4.8) Monocytes # (Auto) 0.5 K/uL (0.1-1.0) Eosinophils # (Auto) 0.27 K/uL (0.00-0.70) Basophils # (Auto) 0.04 K/uL (0.00-0.20) Absolute Immature Granulocyte (auto 0.02 K/uL (0-1) Nucleated Red Blood Cells 0.0 % (0.0-0.19) Sodium Level 143 mmol/L (136-145) Potassium Level 4.2 mmol/L (3.5-5.1) Chloride Level 110 mmol/L (101-111) Carbon Dioxide Level 28 mmol/L (21-32) Blood Urea Nitrogen 20 mg/dL (7-18) Creatinine 0.8 mg/dL (0.5-1.0) Glomerular Filtration Rate Calc 81 mL/min (>90) Random Glucose 105 mg/dL (70-105) Total Calcium 9.4 mg/dL (8.5-10.1) Total Bilirubin 0.3 mg/dL (0.2-1.0) Aspartate Amino Transf (AST/SGOT) 18 U/L (10-37) Alanine Aminotransferase (ALT/SGPT) 14 U/L (12-78) Alkaline Phosphatase 114 U/L (50-136) Total Protein 6.4 g/dL (6.0-8.3) Albumin 3.1 g/dL (3.5-5.0) INPATIENT MEDS: Current Medications Medications Dose Ordered Sig/Igor Start Time Stop Time Status Last Admin Nitroglycerin 0.4 mg AD PRN 08/15/24 09:00 09/14/24 08:59 08/16/24 13:36 Atorvastatin Calcium 40 mg HS 08/15/24 21:00 09/14/24 20:59 08/15/24 20:50 Enoxaparin Sodium 40 mg DAILY 08/16/24 09:00 09/15/24 08:59 Ticagrelor 90 mg BID 08/16/24 21:00 09/15/24 20:59 Sodium Chloride 1,000 ml @ 150 mls/hr [id number] 08/16/24 18:00 08/16/24 23:59 Aspirin 81 mg DAILY 08/17/24 09:00 09/16/24 08:59 PROBLEM LIST: (1) CAD (coronary artery disease) ICD Code: I25.10 - Atherosclerotic heart disease of [place] coronary artery without angina pectoris (2) Heart disease ICD Code: I51.9 - Heart disease, unspecified (3) Chest pain ICD Code: R07.9 - Chest pain, unspecified (4) High risk of cardiac event ICD Code: Z91.89 - Other specified personal risk factors, not elsewhere cl assified PLAN: consult cardiology ISMAEL PEARCE MD Aug 16, 2024 22:22
[2024-08-16] MEDS: TICAGrelor 90 MG TABLET PO SCH (22:26)
[2024-08-17 00:19] VITALS: BP 117/71; PULSE 57; RESP 18; TEMP 98.6
[2024-08-17 03:43] LABS: HEMATOCRIT 38.3 % (36-48); MEAN CORPUSCULAR HGB CONC 33.9 g/dL (32.0-36.0); MEAN CORPUSCULAR VOLUME 97.2 fL (79-99); RED BLOOD CELL COUNT(AUTO) 3.94 MIL/uL (4.00-5.50); RED CELL DISTRIBUTION WIDTH 11.7 % (11.0-15.5); WHITE BLOOD COUNT (AUTO) 8.8 K/uL (4.8-10.8)
[2024-08-17 03:57] LABS: CREATININE 0.8 mg/dL (0.5-1.0); POTASSIUM 3.8 mmol/L (3.5-5.1)
[2024-08-17 04:20] VITALS: BP 121/76; PULSE 60; RESP 18; TEMP 98.8
[2024-08-17 07:00] VITALS: BP 125/68; PULSE 57; RESP 20; TEMP 98.5
--- NOTE | 2024-08-17 07:35 | PN ---
[facility] CARDIOLOGY PROGRESS NOTE Date Patient Seen: Aug 17, 2024 Time of Visit: 07:32 Interval History: [S/p lithiotripsy and PCI to RCA.] Physical Examination: GENERAL: [No acute distress.] HEAD: [Normal with no signs of head trauma.] EYES: [PERRLA, EOMI, conjunctiva and sclera normal.] ENT: [Hearing grossly intact, normal oropharynx.] NECK: [Supple without JVD. There is no tenderness, lymphadenopathy, or masses. No thyromegaly. Normal carotid upstrokes without bruits.] LUNGS: [Clear breath sounds bilaterally. There are right basilar rales one third of the way up the chest. No wheezes, or rhonchi.] HEART: [Normal rate and rhythm. Normal S1 and S2 without mumurs, gallop or rub.] VASC: [Peripheral pulses +2 bilaterally.] ABD: [Bowel sounds normal, soft, nontender, no masses, no organomegaly. No audible bruits.] : [Not examined] LYMPH: [No lymphadenopathy noted.] EXT: [No clubbing, cyanosis or edema.] SKIN: [No rashes or lesions noted.] NEURO: [Awake, alert, and oriented x3. No focal sensory or strength deficits noted.] Laboratory: [ ] Hematology Labs: Test 08/17/24 03:27 08/16/24 06:26 Range/Units White Blood Count 8.8 # 4.8-10.8 K/uL Red Blood Count 3.94 L 4.00-5.50 MIL/uL Hemoglobin 13.0 12.0-16.0 g/dL Hematocrit 38.3 36-48 % Mean Corpuscular Volume 97.2 79-99 fL Mean Corpuscular Hemoglobin 33.0 27.0-33.0 pg Mean Corpuscular Hemoglobin Concent 33.9 32.0-36.0 g/dL Red Cell Distribution Width 11.7 11.0-15.5 % Platelet Count 288 130-400 K/uL Mean Platelet Volume 10.7 H 7.5-10.5 fL Nucleated Red Blood Cells 0.0 0.0-0.19 % Immature Granulocyte % (Auto) 0.3 0-1 % Neutrophils (%) (Auto) 52.4 40.0-77.0 % Lymphocytes (%) (Auto) 34.2 21.0-51.0 % Monocytes (%) (Auto) 7.9 3.0-13.0 % Eosinophils (%) (Auto) 4.5 0.0-8.0 % Basophils (%) (Auto) 0.7 0.0-5.0 % Neutrophils # (Auto) 3.2 1.8-7.7 K/uL Lymphocytes # (Auto) 2.1 1.0-4.8 K/uL Monocytes # (Auto) 0.5 0.1-1.0 K/uL Eosinophils # (Auto) 0.27 0.00-0.70 K/uL Basophils # (Auto) 0.04 0.00-0.20 K/uL Absolute Immature Granulocyte (auto 0.02 0-1 K/uL Chemistry Labs: Test 08/17/24 03:27 08/16/24 06:26 08/15/24 11:23 Range/Units Sodium Level 145 136-145 mmol/L Potassium Level 3.8 3.5-5.1 mmol/L Chloride Level 111 101-111 mmol/L Carbon Dioxide Level 28 21-32 mmol/L Blood Urea Nitrogen 15 7-18 mg/dL Creatinine 0.8 0.5-1.0 mg/dL Glomerular Filtration Rate Calc 81 >90 mL/min Random Glucose 98 70-105 mg/dL Total Calcium 9.0 8.5-10.1 mg/dL Triglycerides Level 57 30-200 mg/dL Cholesterol Level 161 # <200 mg/dL LDL Cholesterol 78 0-99 mg/dL HDL Cholesterol 74 35-85 mg/dL Total Bilirubin 0.3 0.2-1.0 mg/dL Aspartate Amino Transf (AST/SGOT) 18 10-37 U/L Alanine Aminotransferase (ALT/SGPT) 14 12-78 U/L Alkaline Phosphatase 114 50-136 U/L Total Protein 6.4 6.0-8.3 g/dL Albumin 3.1 L 3.5-5.0 g/dL Troponin I High Sensitivity < 4 L 4-50 ng/L Coagulation Labs: Test 08/15/24 09:28 Range/Units Prothrombin Time 10.3 9.6-11.6 SEC Prothromb Time International Ratio <= 0.93 0.85-1.15 Activated Partial Thromboplast Time 28.7 26.3-35.5 SEC Diagnostics / Radiology: [Copy/Paste Echos/Imaging Report here] Impression and Plan: [ Atypical chest pain on presentation: Exertional angina pectoris and dyspnea on exertion: Abnormal Lexiscan Cardiolite stress test approximately 03/31/2024 demonstrating moderate inferior defect with a gated EF of 88%: Coronary artery disease with abnormal heart Saver CT coronary angiogram 06/30/2024 demonstrating heavily calcified proximal RCA : -The patient has ruled out for acute myocardial ischemia thus far with no evidence of ischemia on EKG, and 2- high sensitivity troponins within normal limits -she has experienced substernal chest pressure almost daily requiring use of sublingual nitroglycerin suggestive of unstable angina - atorvastatin 40 mg p.o. daily -08/16 LDL 100, HDL 88, TG 102, Chol 213; goal LDL <70 -s/p LHC with shock wave and SUGEY PCI 08/16/2024: This is a right-dominant system. The right coronary is a very large vessel which supplies a large posterior descending and two large posterolateral. Proximal to the right ventricular marginal branch there is an eccentric heavily calcified 95-98% stenosis. c/w DAPT 12-18 months (asa 81 mg qd, brillinta 90 mg bid) I will sign off. She may follow up two weeks after discharge. Dang Esquivel MD] DANG ESQUIVEL MD Aug 17, 2024 07:35
[2024-08-17 08:00] VITALS: O2SAT 100
--- NOTE | 2024-08-17 08:21 | EKG ---
[facility] Test Date: 2024-08-17 Test Time: 06:15:42 Pat Name: DEBI HENSLEY Department: [facility] Room: 224 1 Gender: F Child And Family Counselor: [id number] : 1955 Requested By: GRUPO CARVALHO Order Number: [id number] Reading MD: Francesco Parsons Measurements Intervals Stow Rate: 57 P: 7 GA: 154 QRS: -53 QRSD: 93 T: -21 QT: 444 QTc: 432 Interpretive Statements Sinus rhythm Left anterior fascicular block Compared to ECG 08/15/2024 08:53:39 No significant changes Electronically Signed On 08-17-2024 17:04:34 INTENSIVIST by Francesco Parsons Please click the below link to view image of tracing.
[2024-08-17] MEDS: ASPIRIN 81MG CHEW TAB PO SCH (09:33)
--- NOTE | 2024-08-17 12:30 | NUR ---
EKG ORDER CANCELLED PER DR. Donato LAFLEUR.
--- NOTE | 2024-08-17 13:00 | NUR ---
DISCHARGE INSTRUCTIONS WERE GIVEN TO THIS PATIENT AND SHE VOICED UNDERSTANDING TO ATTEND FOLLOW UP APPTS. PIV TO LEFT AC WAS REMOVED WITH CATHETER INTACT AND DRY DRESSING APPLIED. TELE HERI WAS REMOVED AND RETURNED. EDUCATION PROVIDED ON NEW MEDICATIONS AND SHE VOICED UNDERSTANDING. ALL BELONGINGS WERE TAKEN WITH THIS PATIENT AND WAS TAKEN TO PRIVATE VEHICLE VIA WHEELCHAIR.
--- NOTE | 2024-08-17 22:21 | DS ---
Discharge Summary DIAGNOSE(S): [ Atypical chest pain on presentation: Exertional angina pectoris and dyspnea on exertion: Abnormal Lexiscan Cardiolite stress test approximately 03/31/2024 demonstrating moderate inferior defect with a gated EF of 88%: Coronary artery disease with abnormal heart Saver CT coronary angiogram 06/30/2024 demonstrating heavily calcified proximal RCA : HOSPITAL COURSE SUMMARY: [-The patient has ruled out for acute myocardial ischemia thus far with no evidence of ischemia on EKG, and 2- high sensitivity troponins within normal limits -she has experienced substernal chest pressure almost daily requiring use of sublingual nitroglycerin suggestive of unstable angina - atorvastatin 40 mg p.o. daily -08/16 LDL 100, HDL 88, TG 102, Chol 213; goal LDL <70 -s/p LHC with shock wave and SUGEY PCI 08/16/2024: This is a right-dominant system. The right coronary is a very large vessel which supplies a large posterior descending and two large posterolateral. Proximal to the right ventricular marginal branch there is an eccentric heavily calcified 95-98% steno sis. c/w DAPT 12-18 months (asa 81 mg qd, brillinta 90 mg bid)]] DEVELOPMENT TECHNICAL LEAD(S): [Cardiology] PROCEDURE(S)/TREATMENT(S): [] PROBLEM(S): [] FOLLOW-UP TEST(S): [] DISCHARGE INSTRUCTIONS: [Follow up with me in 1-2 days] Home Meds Reported Medications Nitroglycerin (Nitroglycerin) 0.4 Mg Tab.subl, 1 TAB SL AD for angina 08/16/24 ISMAEL PEARCE MD Aug 17, 2024 22:21
[2024-08-20] MEDS ORDERED: ASPI-1005 PO (00:19)
[2024-08-20] MEDS ORDERED: TICA90TA PO (00:19)
[2024-08-20] MEDS ORDERED: ATOR40TA71 PO (00:19)
== END 2024-08-17 12:48 | disposition home or self-care (01) ==
LOC: EDH 08:30 → EDHIP 11:27 → 2DH 08-16 18:37
PROVIDERS: ADMIT Internal Medicine; ATTEND Internal Medicine
DX: I25.119 Atherosclerotic heart disease of native coronary artery with unspecified angina pectoris (principal); I44.4 Left anterior fascicular block; K21.9 Gastro-esophageal reflux disease without esophagitis; R51.9 Headache, unspecified; R06.02 Shortness of breath; Z90.711 Acquired absence of uterus with remaining cervical stump; Z79.82 Long term (current) use of aspirin; Z79.899 Other long term (current) drug therapy; Z87.891 Personal history of nicotine dependence
CPT/HCPCS: 96372 ×2; 84484 ×2; 80061 ×2; 80048 ×2; 85025 ×2; 85610; 85730; 81003; 36415 ×3; 71045; 99291; 93005 ×2; 93458; 92978; 92972; 80053; 85027; G0378 ×46; Q9965; J1650 ×2; C1769; C1894 ×2; C1725 ×2; C1874 ×2; C1887 ×2; C1760; C1761; C1753; J3010; J3490 ×3; J2250; J1644 ×2; J0583 ×2; Q9967 ×2; C9600; 99156; 99157; J0461

== ENCOUNTER → 2024-08-18 | Outpatient (CLI) | payer BC, MEDICARE ==
[~2024-08-18] MED LIST changes: +ASPI-1005 PO; +ATOR40TA71 PO; -IOHEXOL 350 MG/ML 100ML INFUS..BTL IV ONE; +NITR0.4T50 SL; +TICA90TA PO; -metoPROLOL tartRATE 1 MG/ML 5ML VIAL IV ONE
--- NOTE | 2024-08-18 12:59 | HMCIMG ---
CHEST 2VWS HISTORY: Coronary artery disease COMPARISON: 08/15/2024 FINDINGS: Frontal and lateral projections of the chest were obtained. There is no acute pulmonary infiltrates or failure. The heart is borderline enlarged. No evidence of aortic calcification is seen. Degenerative changes are seen of the thoracolumbar spine. IMPRESSION: 1. No acute pulmonary infiltrates.
== END | disposition home or self-care (01) ==
LOC: RAH 12:24
PROVIDERS: ATTEND Internal Medicine
DX: I25.10 Atherosclerotic heart disease of native coronary artery without angina pectoris (principal); M47.815 Spondylosis without myelopathy or radiculopathy, thoracolumbar region
CPT/HCPCS: 71046

== ENCOUNTER → 2024-09-06 | Outpatient (CLI) | payer BC ==
--- NOTE | 2024-09-06 14:40 | HMCIMG ---
CT HEAD/BRAIN W/O CONTRAST HISTORY: Unsteady gait COMPARISON: None TECHNIQUE: Multiple sequential axial images of the head were obtained from the base of the skull through vertex. Patient was not given contrast through intravenous route. FINDINGS: The ventricles and extraventricular CSF spaces are nondilated for patient's age. There is no midline shift, mass effect or herniation. No acute intracranial bleed is seen. Visualized portion of the paranasal sinuses are grossly within normal limits. IMPRESSION: 1. No acute intracranial bleed is seen. CT was performed with one or more following dose reduction techniques: automated exposure control, adjustment of the mA and kv according to patient's size, or use of a iterative reconstruction technique.
== END | disposition home or self-care (01) ==
LOC: RAH 13:45
PROVIDERS: ATTEND Student in an Organized Health Care Education/Training Program
DX: E87.8 Other disorders of electrolyte and fluid balance, not elsewhere classified (principal)
CPT/HCPCS: 70450

== ENCOUNTER → 2024-11-14 | Outpatient (CLI) | payer BC ==
[2024-11-14 16:44] LABS: ALBUMIN 3.6 g/dL (3.5-5.0); BILIRUBIN,TOTAL 0.4 mg/dL (0.2-1.0); CREATININE 0.7 mg/dL (0.5-1.0); POTASSIUM 3.9 mmol/L (3.5-5.1)
== END | disposition home or self-care (01) ==
LOC: LAB 13:40
PROVIDERS: ATTEND Student in an Organized Health Care Education/Training Program
DX: I25.10 Atherosclerotic heart disease of native coronary artery without angina pectoris (principal); R07.9 Chest pain, unspecified
CPT/HCPCS: 36415; 80053

== ENCOUNTER 2025-05-24 20:19 | Emergency (ER) | payer BC, MEDICARE ==
[~2025-05-24] VITALS: Ht 160 cm; Wt 78.0 kg
[~2025-05-24 20:19] MED LIST changes: +ACET-3859 PO; +CLOP75TA32 PO; -TICA90TA PO
--- NOTE | 2025-05-24 20:27 | ERN ---
ED Note History of Present Illness Stated Complaint: C/O PALPITATIONS WITH SOB Chief Complaint: Palpitations Time Seen by MD: 20:21 Dictation: This is a very pleasant 69-year-old female who presented to the emergency room with complaints of palpitations throughout the day today. She stated that occasionally she feels a palpitations transiently. She normally drinks 2 cups of coffee in the morning. 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 She was experiencing palpitations and also sweating. After she rested she continued to have intermittently and hence she came in for evaluation. In review of her medications she is also on Lasix twice a week. She denied any alcohol ingestion. No chest pain, presyncopal symptoms. No nausea vomitings diarrhea. No fever chills or rigors. Temperature 98.1 pulse 60 respirations 20 blood pressure 124/66 with a pulse oximetry of 100% on room air Her chronic medical problems include coronary artery disease status post PTCA with a drug-eluting stent to mid RCA in July of 2024, gastroesophageal reflux disease, hypercholesterolemia and history of a GI bleed. Allergies: Coded Allergies: No Known Drug Allergies (Unverified Allergy, Intermediate, 06/21/24) Home Meds Reported Medications Acetaminophen (Acetaminophen) 325 Mg Tablet, 1 TAB PO Q4HPRN PRN for pain or fever for 24 Days, #100 TAB 0 Refills 01/26/25 Clopidogrel Bisulfate (Clopidogrel) 75 Mg Tablet, 75 MG PO DAILY, TAB 01/23/25 Atorvastatin Calcium (Atorvastatin Calcium) 40 Mg Tablet, 1 TAB PO HS for 30 Days, #30 TAB 0 Refills 08/20/24 Aspirin (ASPIRIN 81MG CHEW TAB) 81 Mg Tab.chew, 81 MG PO DAILY, TAB.CHEW 08/20/24 Nitroglycerin (Nitroglycerin) 0.4 Mg Tab.subl, 1 TAB SL AD for angina 08/16/24 Past Medical History Past Medical History: Arrythmia, CAD, GERD, GI Bleed, High Cholesterol Surgical History: Other Surgical History Other: CARDIAC STENT Family History: Negative Social History: Negative History: Not Applicable RN Note Reviewed/Agreed w/PFSH: Yes Review of System Dictation Constitutional: Negative for fever,chills, and weight loss Eyes: Negative for injury, pain,redness, and discharge ENT: Negative for injury,pain or swelling Cardiovascular: Negative for chest pain,, and edema positive for palpitations Respiratory: Negative for shortness of breath, cough, and wheezing, Abdomen/GI: Negative for abdominal pain, nausea, vomiting, diarrhea, and constipation Back: Negative for injury and pain : Negative for injury, bleeding and discharge MS/Extremity: Negative for injury and deformity Skin: Negative for rash, and discoloration Neuro: Negative for headache, weakness, numbness, tingling, and seizure Psych: Negative for suicide ideation, homicidal ideation, and hallucinations Initial Vital Sign VS Vital Signs Date Time Temp Pulse Resp B/P (MAP) Pulse Ox O2 Delivery O2 Flow Rate FiO2 05/24/25 20:21 98.1 60 20 124/66 100 Room Air 05/24/25 20:38 0 21 Physical Exam Dictation General: awake, alert, NAD Head/Face: Normocephalic, atraumatic Eyes: PERRL, EOMI, vision at baseline ENT: oral cavity clear, TMs clear, no signs of infection mucous membranes are dry Neck: Trachea midline, supple, no nuchal rigidity Cardiovascular: RRR, normal S1/S2, No MRGs, no JVD Respiratory: CTAB, no respiratory distress, No rales or wheezes Abdomen: Soft, non-tender, non-distended, normal bowel sounds, no guarding or rebound. Skin: Warm, dry, skin turgor poor, no rash MS/Extremity: Pulses equal, no cyanosis, neurovascular intact, FROM Neuro: COAx4, GCS 15, strength 5/5, CN 2-12 intact, normal cerebellar exam, normal gait, Psych: Normal behavior, mood, and affect normal Extremities-trace edema without any palpable cords, Homans sign is negative Results (Laboratory/Radiology) Laboratory/Radiology Laboratory Tests Test 05/24/25 20:30 05/24/25 21:17 White Blood Count 8.4 K/uL (4.8-10.8) Red Blood Count 4.22 MIL/uL (4.00-5.50) Hemoglobin 13.9 g/dL (12.0-16.0) Hematocrit 41.1 % (36-48) Mean Corpuscular Volume 97.4 fL (79-99) Mean Corpuscular Hemoglobin 32.9 pg (27.0-33.0) Mean Corpuscular Hemoglobin Concent 33.8 g/dL (32.0-36.0) Red Cell Distribution Width 11.8 % (11.0-15.5) Platelet Count 308 K/uL (130-400) Mean Platelet Volume 10.5 fL (7.5-10.5) Immature Granulocyte % (Auto) 0.2 % (0-1) Neutrophils (%) (Auto) 55.0 % (40.0-77.0) Lymphocytes (%) (Auto) 33.3 % (21.0-51.0) Monocytes (%) (Auto) 7.6 % (3.0-13.0) Eosinophils (%) (Auto) 3.2 % (0.0-8.0) Basophils (%) (Auto) 0.7 % (0.0-5.0) Neutrophils # (Auto) 4.6 K/uL (1.8-7.7) Lymphocytes # (Auto) 2.8 K/uL (1.0-4.8) Monocytes # (Auto) 0.6 K/uL (0.1-1.0) Eosinophils # (Auto) 0.27 K/uL (0.00-0.70) Basophils # (Auto) 0.06 K/uL (0.00-0.20) Absolute Immature Granulocyte (auto 0.02 K/uL (0-1) Nucleated Red Blood Cells 0.0 % (0.0-0.19) Sodium Level 137 mmol/L (136-145) Potassium Level 3.3 mmol/L (3.5-5.1) L Chloride Level 103 mmol/L (101-111) Carbon Dioxide Level 25 mmol/L (21-32) Blood Urea Nitrogen 28 mg/dL (7-18) H Creatinine 0.8 mg/dL (0.5-1.0) Glomerular Filtration Rate Calc 81 mL/min (>90) Random Glucose 107 mg/dL (70-105) H Total Calcium 9.5 mg/dL (8.5-10.1) Magnesium Level 2.30 mg/dL (1.80-2.40) Troponin I High Sensitivity 6 ng/L (4-50) Urine Color COLORLESS (YELLOW) Urine Appearance CLEAR (CLEAR) Urine pH 6.5 (5.0-8.0) Urine Specific [place] 1.008 (1.001-1.031) Urine Protein NEGATIVE mg/dL (NEGATIVE) Urine Glucose (UA) NEGATIVE mg/dL (NEGATIVE) Urine Ketones NEGATIVE mg/dL (NEGATIVE) Urine Occult Blood NEGATIVE (NEGATIVE) Urine Nitrate NEGATIVE (NEGATIVE) Urine Bilirubin NEGATIVE mg/dL (NEGATIVE) Urine Urobilinogen 0.2 mg/dL (0.2-1.0) Urine Leukocyte Esterase 75 Alison/uL (NEGATIVE) H Urine RBC 0-1 /HPF (0-1) Urine WBC 2-5 /HPF (0-1) H Urine Squamous Epithelial Cells RARE /HPF (0-2) Urine Bacteria RARE /HPF (None Seen) Labs Reviewed?: Yes EKG Comment: Twelve lead EKG done on 05/24/2025 at 8:19 p.m. showed a heart rate of 63, OK interval 149, QRS duration 93, QT/QTC 424/435 Impression normal sinus rhythm with a no acute STT wave changes noted. Overall somewhat of a low voltage. EKG rhythm strip shows a normal sinus rhythm with nonspecific changes. Interpreted by ER MD Dr. Ott X-RAY Comment: CECILIA: PALPITATIONS ORDERING PHYSICIAN: GOLD OTT MD PROCEDURE: CXR1VW - CHEST 1VW EXAM: CR Chest, 1 view CLINICAL HISTORY: Palpitations. COMPARISON: Chest radiograph dated 01/20/2025. FINDINGS: The lungs show no infiltrates or other acute findings. No pleural effusion or pneumothorax. The cardiomediastinal silhouette is within normal limits. No acute osseous abnormality. IMPRESSION: No acute cardiopulmonary process is evident. Compared to the prior study, there is no significant interval change. /[place] DICTATED BY: JUANJOSE CARBALLO Jr., MD DATE: 05/24/252313 ELECTRONICALLY SIGNED BY: JUANJOSE CARBALLO Jr., MD DATE: 05/24/252313 ED Course ED Course Orders Procedure Category Date Status Time Cbc With Differential LAB 05/24/25 Complete 20:23 Basic Metabolic Panel LAB 05/24/25 Complete 20:23 Troponin I High LAB 05/24/25 Complete Sensitivity 20:23 Magnesium LAB 05/24/25 Complete 20:23 Iv Insertion CPOE 05/24/25 Transmitted 20:23 Chest 1vw RAD 05/24/25 Resulted 20:23 12 Lead Ekg Tracing- EKG 05/24/25 Logged Technical 20:23 12 Lead Ekg Tracing- EKG 05/24/25 Logged Technical 20:25 Urinalysis Profile LAB 05/24/25 Complete 20:25 0.9% Nacl 500ml PHA 05/24/25 Complete Iv.Soln (Ns 500ml 21:00 Culture Urine NANCY 05/24/25 In Process 21:27 Current Medications Medications (Trade) Dose Ordered Sig/Igor Route PRN Reason Start Time Stop Time Status Last Admin Dose Admin Sodium Chloride 500 ml @ 0 mls/hr ONCE ONCE IV 05/24/25 21:00 05/24/25 21:01 DC 05/24/25 21:22 Vital Signs Date Time Temp Pulse Resp B/P (MAP) Pulse Ox O2 Delivery O2 Flow Rate FiO2 05/24/25 21:39 98.6 64 20 132/72 99 Room Air* 0 21 05/24/25 20:38 98.4 68 18 148/78 98 Room Air* 0 21 05/24/25 20:21 98.1 60 20 124/66 100 Room Air Medical Decision Making MDM Differential diagnosis: Dehydration, cardiac event, caffeine related, thyroid disease This is a very pleasant 69-year-old female who presented to the emergency room with complaints of palpitations throughout the day today. She stated that occasionally she feels a palpitations transiently. She normally drinks 2 cups of coffee in the morning. 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 She was experiencing palpitations and also sweating. After she rested she continued to have intermittently and hence she came in for evaluation. In review of her medications she is also on Lasix twice a week. She denied any alcohol ingestion. No chest pain, presyncopal symptoms. No nausea vomitings diarrhea. No fever chills or rigors. Temperature 98.1 pulse 60 respirations 20 blood pressure 124/66 with a pulse oximetry of 100% on room air Her chronic medical problems include coronary artery disease status post PTCA with a drug-eluting stent to mid RCA in July of 2024, gastroesophageal reflux disease, hypercholesterolemia and history of a GI bleed. 8:50 p.m. labs reviewed CBC is with a normal limits BNP 7 shows a potassium of 3.3 BUN and creatinine are 28 and 0.8. EKG showed normal sinus rhythm without any palpitations or arrhythmia I updated the patient and her spouse on available labs in the EKG findings and I strongly suspect that it was combination of caffeine in the morning, being in the sun for many hours and exerting herself with sweating and insensible losses and also using a diuretic few days ago as possibly a cause of mild dehydration and palpitations. I recommended small amounts of fluid to hydrate and to back off on the diuretic and caffeine. She verbalized full understanding. Rationale: Tests considered and ordered secondary to shared decision making i nclude: Previous outside records reviewed: Old ER visits. Risk of complication and/or morbidity or mortality of patient management: None Medications-Per medication reconciliation Need for hospitalization: Patient does not meet criteria for hospitalization. Need for emergency major/minor surgery: No There are no social concerns with this patient. Prescription drug management Prescriptions will include symptomatic care Patient's prior external medical records from other ER visits were reviewed by me as indicated. Prior testing and results from previous visits were reviewed. Prior tests were taken into account with medical decision making and resource utilization, independent historian/historians were used to obtain complete medical history. I independently interpreted the test that were performed, results were reviewed by me and considered findings on radiology if ordered. Medical management and examination interpretation discussions were had by me with other qualified healthcare professionals as indicated for the patient's care. Problem List Problem List: (1) Palpitations (2) Dehydration after exertion (3) History of CAD (coronary artery disease) DX & DISP Disposition: Discharge Departure Impression: Primary Impression: Dehydration after exertion Additional Impressions: Palpitations, History of CAD (coronary artery disease) Condition: Stable Additional Instructions: Patient and the caregiver have been informed of all the diagnostic tests and the imaging conducted during the today's visit to the emergency room and has verbalized understanding of the results I have personally reviewed and interpreted all diagnostic exams performed here in the ER today as well as the vital signs documented by the nursing staff. The patient is now being discharged to home and should follow up with the primary care physician or the specialist as directed by the ER staff. Follow-up with primary care provider in 1 to 2 days. Take medications as direc garo here in the emergency room. Okay to continue home medications unless otherwise discussed during your visit in the emergency room today. Return to your nearest emergency room if symptoms worsen or if there is no improvement. Call 911 if you need immediate assistance. Take Tylenol or Motrin [id number] as needed and if no contraindications are present. Increase oral hydration. A wound culture or urine culture was ordered here in the emergency room department please follow-up with primary care provider and advise them to get repeat ports from our facility. If you had any James wrap/splints that were applied here, please do not remove them until you see your primary care or specialty. Instructed patient to discuss Lasix parameters (went to take) with the primary care physician. I suggested that if the patient gains more than 3 lb and notices any swelling in the legs, it maybe reasonable to take half a pill that day. Referrals: ISMAEL PEARCE MD (PCP) GOLD OTT MD May 24, 2025 20:27
[2025-05-24 20:38] LABS: IMMATURE GRANULOCYTE ABSOLUTE 0.02 K/uL (0-1); NUCLEATED RED BLOOD CELLS 0.0 % (0.0-0.19); PLATELET COUNT (AUTO) 308 K/uL (130-400); RED BLOOD CELL COUNT(AUTO) 4.22 MIL/uL (4.00-5.50); RED CELL DISTRIBUTION WIDTH 11.8 % (11.0-15.5); WHITE BLOOD COUNT (AUTO) 8.4 K/uL (4.8-10.8)
[2025-05-24 20:44] LABS: CREATININE 0.8 mg/dL (0.5-1.0); GLOMERULAR FILTR. RATE CALC 81.0 mL/min (>90); GLUCOSE,RANDOM 107.0 mg/dL (70-105); SODIUM SERUM 137.0 mmol/L (136-145); UREA NITROGEN, BLOOD 28.0 mg/dL (7-18)
[2025-05-24] MEDS: 0.9% NACL 500ML IV.SOLN 500 ML IV ONE (21:22)
[2025-05-24 21:26] LABS: ADD UA MICROSCOPIC YES; APPEARANCE,URINE CLEAR (CLEAR); GLUCOSE, URINE (UA) NEGATIVE (NEGATIVE); LEUKOCYTE ESTERASE ,URINE 75 Leu/uL (NEGATIVE); NITRATE,URINE NEGATIVE (NEGATIVE); OCCULT BLOOD,URINE NEGATIVE (NEGATIVE)
[2025-05-24 21:31] LABS: SQUAMOUS EPITHELIAL CELL,UR RARE /HPF (0-2)
[2025-05-24 21:39] VITALS: BP 132/72; PULSE 64; RESP 20; TEMP 98.6; O2SAT 99
--- NOTE | 2025-05-24 22:15 | HMCIMG ---
EXAM: CR Chest, 1 view CLINICAL HISTORY: Palpitations. COMPARISON: Chest radiograph dated 01/20/2025. FINDINGS: The lungs show no infiltrates or other acute findings. No pleural effusion or pneumothorax. The cardiomediastinal silhouette is within normal limits. No acute osseous abnormality. IMPRESSION: No acute cardiopulmonary process is evident. Compared to the prior study, there is no significant interval change. /[place]
--- NOTE | 2025-05-25 04:29 | EKG ---
[facility] Test Date: 2025-05-24 Test Time: 20:19:11 Pat Name: DEBI HENSLEY Department: ED Room: Gender: F Blood Bank Technician: [id number] : 1955 Requested By: GOLD OTT Order Number: [id number] Reading MD: Pretty Piña Measurements Intervals [place] Rate: 63 P: 35 NV: 149 QRS: -61 QRSD: 93 T: -3 QT: 424 QTc: 435 Interpretive Statements Sinus rhythm Left anterior fascicular block Compared to ECG 01/23/2025 13:23:46 No significant changes Electronically Signed On 05-26-2025 08:33:42 CDT by Pretty Piña Please click the below link to view image of tracing.
== END 2025-05-24 21:53 | disposition home or self-care (01) ==
LOC: EDH 20:19
DX: E86.0 Dehydration (principal); R00.2 Palpitations; E78.00 Pure hypercholesterolemia, unspecified; I25.10 Atherosclerotic heart disease of native coronary artery without angina pectoris; Z79.02 Long term (current) use of antithrombotics/antiplatelets; Z79.82 Long term (current) use of aspirin; Z95.5 Presence of coronary angioplasty implant and graft
CPT/HCPCS: 36415; 71045; 80048; 81001; 83735; 84484; 85025; 87086; 93005; 99285

== ENCOUNTER 2025-08-13 11:48 | Emergency (ER) | payer BC ==
[~2025-08-13] VITALS: Ht 160 cm; Wt 78.1 kg
--- NOTE | 2025-08-13 11:58 | ERN ---
ED Note History of Present Illness Stated Complaint: FALL Chief Complaint: Mechanical Fall Time Seen by MD: 11:50 Dictation: PATIENT IS A 70-YEAR-OLD FEMALE COMES IN TODAY WITH COMPLAINTS OF A TRIP FALL IN HIS COMPLAINING OF HER RIGHT SHOULDER, RIGHT ELBOW WITH A AN ABRASION, LEFT PINKY FINGER. STATES SHE IS ON BLOOD THINNERS HOWEVER SHE DID NOT HIT HER HEAD THERE WAS NO LOC NO TRAUMA ALERT CRITERIA. SHE HAS NO SPINE PAIN AND NEUROVASCULAR CMS INTACT TO ALL EXTREMITIES. FULL RANGE OF MOTION NOTED TO RIGHT SHOULDER PATIENT STATES HER LAST TETANUS SHOT WAS 2023 Allergies: Coded Allergies: No Known Drug Allergies (Unverified Allergy, Intermediate, 06/21/24) Home Meds Reported Medications Acetaminophen (Acetaminophen) 325 Mg Tablet, 1 TAB PO Q4HPRN PRN for pain or fever for 24 Days, #100 TAB 0 Refills 01/26/25 Clopidogrel Bisulfate (Clopidogrel) 75 Mg Tablet, 75 MG PO DAILY, TAB 01/23/25 Atorvastatin Calcium (Atorvastatin Calcium) 40 Mg Tablet, 1 TAB PO HS for 30 Days, #30 TAB 0 Refills 08/20/24 Aspirin (ASPIRIN 81MG CHEW TAB) 81 Mg Tab.chew, 81 MG PO DAILY, TAB.CHEW 08/20/24 Nitroglycerin (Nitroglycerin) 0.4 Mg Tab.subl, 1 TAB SL AD for angina 08/16/24 Past Medical History Past Medical History: Arrythmia, CAD, GERD, GI Bleed, High Cholesterol Surgical History: Other Surgical History Other: CARDIAC STENT Family History: Negative Social History: Negative History: Not Applicable RN Note Reviewed/Agreed w/PFSH: Yes Review of System Dictation CONSTITUTIONAL: NEGATIVE EXCEPT FOR HPI HEAD/FACE: NEGATIVE EXCEPT FOR HPI EENT: NEGATIVE EXCEPT FOR HPI RESPIRATORY: NEGATIVE EXCEPT FOR HPI GASTROINTESTINAL/ABDOMINAL: NEGATIVE EXCEPT FOR HPI GENITOURINARY: NEGATIVE EXCEPT FOR HPI MUSCULOSKELETAL: NEGATIVE EXCEPT FOR HPI RIGHT SHOULDER/RIGHT ELBOW/LEFT 5TH FINGER PAIN INTEGUMENTARY: NEGATIVE EXCEPT FOR HPI ABRASION POSTERIOR RIGHT ELBOW NEUROLOGICAL/PSYCH: NEGATIVE EXCEPT FOR HPI HEMATOLOGIC/LYMPHATIC: NEGATIVE EXCEPT FOR HPI ALL SYSTEMS NEGATIVE, EXCEPT NOTED ABOVE. 13 POINT REVIEW OF SYSTEMS ASSESSED AND ALL NEGATIVE EXCEPT FOR ABOVE. Initial Vital Sign VS Vital Signs Date Time Temp Pulse Resp B/P (MAP) Pulse Ox O2 Delivery O2 Flow Rate FiO2 08/13/25 11:50 97.9 60 18 143/88 97 Room Air 0 08/13/25 12:03 21 Physical Exam Dictation VITAL SIGNS REVIEWED GENERAL APPEARANCE: ALERT, ORIENTED X 3, MILD ACUTE DISTRESS, WELL DEVELOPED, NOURISHED. HEAD AND FACE: NON-TRAUMATIC. NO HEAD TRAUMA EYES: PERRL, PINK CONJUNCTIVAS, EYELID NO TRAUMA, ANTERIOR CHAMBER WITH ARCUS SENILIS. EARS: PINNAS INTACT AND NO SIGNS OF TRAUMA OR ERYTHEMA EAR CANALS CLEAR AND NO DISCHARGE TM NO ERYTHEMA NOSE: NO DISCHARGE, NO BLEEDING. OROPHARYNX: MOUTH NORMAL, TONGUE PINK, PHARYNX CLEAR,NO ERYTHEMA, TONSILS NO EXUDATES, NO ABSCESSES NOTED, MUCOUS MEMBRANE MOIST NECK: SUPPLE, NON-TENDER, NO THYROMEGALY, NO MASSES, NO JVD, NO BRUITS BREAST:DEFERRED CHEST:NO TENDERNESS, NO CREPITUS, NO PARADOXICAL MOVEMENT, NO RETRACTIONS LUNGS:CLEAR, WELL-VENTILATED, SYMMETRIC, NO RALES, NO WHEEZING, NO RHONCHI, NO STRIDOR, GOOD BREATH SOUNDS BILATERALLY HEART: REGULAR RATE, REGULAR RHYTHM, NO MURMUR, NO GALLOPS VASCULAR: NO PERIPHERAL EDEMA, ABDOMEN: SOFT, POSITIVE BOWEL SOUNDS, NONDISTENDED, NO GUARDING, NONTENDER, NO REBOUND, NO MASSES NO HEPATOMEGALY, NO SPLENOMEGALY, NO PEARSON'S SIGN, NO HERNIAS. RECTAL: DEFERRED GENITAL: DEFERRED NEUROLOGICAL: NORMAL SPEECH, MOTOR FUNCTION INTACT, SENSORY FUNCTION INTACT MUSCULOSKELETAL: NECK NONTENDER, FULL RANGE OF MOTION, BACK NONTENDER, FULL RANGE OF MOTION, EXTREMITIES: MILD TENDERNESS TO POSTERIOR RIGHT ELBOW/RIGHT ANTEROLATERAL SHOULDER, MIDDLE PHALANX LEFT 5TH FINGER. FULL RANGE OF MOTION NOTED TO ALL EXTREMITIES NEUROVASCULAR CMS INTACT. SKIN: COLOR PINK, DRY, NO TURGOR, NO RASH, NO LACERATIONS, NO ABRASIONS, NO CONTUSIONS. LYMPHATIC: DEFERRED Results (Laboratory/Radiology) Laboratory/Radiology 1250/RIGHT SHOULDER X-RAY NEGATIVE RIGHT ELBOW X-RAY NEGATIVE NO FAT PAD SIGN LEFT HAND X-RAY NEGATIVE Labs Reviewed?: Yes ED Course ED Course Orders Procedure Category Date Status Time Shoulder Comp 2+Vws Rt RAD 08/13/25 Taken 11:53 Elbow Comp 3+Vws Rt RAD 08/13/25 Taken 11:53 Hand 3+Vws Lt RAD 08/13/25 Taken 11:53 Acetaminophen 500mg PHA 08/13/25 Complete Tab (Tylenol 500mg T 12:00 Neomy PHA 08/13/25 Complete Sulf/Bacitra/Polymyxin 12:00 Current Medications Medications (Trade) Dose Ordered Sig/Igor Route PRN Reason Start Time Stop Time Status Last Admin Dose Admin Acetaminophen (TYLenol 500MG TAB) 1,000 mg ONCE ONCE PO 08/13/25 12:00 08/13/25 12:01 DC 08/13/25 12:07 Neomycin/ Polymyxin/ Bacitracin (Triple Antibiotic Ointment) 1 appl ONCE ONCE TP 08/13/25 12:00 08/13/25 12:01 DC 08/13/25 12:07 Vital Signs Date Time Temp Pulse Resp B/P (MAP) Pulse Ox O2 Delivery O2 Flow Rate FiO2 08/13/25 12:03 97.9 62 18 138/78 97 Room Air* 0 21 08/13/25 11:50 97.9 60 18 143/88 97 Room Air 0 1250/PATIENT DISCHARGED HOME WITH NEXT IT X-RAYS OF SHOULDER LEFT HAND AND RIGHT ELBOW. NEUROVASCULAR CMS INTACT TO ALL EXTREMITIES Medical Decision Making MDM MEDICAL DECISION-MAKING HPI AND X-RAYS OF RIGHT SHOULDER, RIGHT ELBOW, LEFT HAND. ALL X-RAYS NEGATIVE NEUROVASCULAR CMS INTACT TO ALL EXTREMITIES DISCHARGED HOME WITH IBUPROFEN AND TOLD TO SEE HER PRIMARY CARE DOCTOR 1-2 DAYS WOUND CARE INSTRUCTIONS FOR HER ABRASION TO HER RIGHT ELBOW DX & DISP Disposition: Discharge Departure Impression: Primary Impression: Contusion of right shoulder, initial encounter Additional Impressions: Contusion of right elbow, initial encounter, Abrasion of elbow, right, Contusion of left hand, initial encounter, Fall Condition: Stable Scripts Ibuprofen (Ibuprofen 800 mg Tab) 800 Mg Tab 800 MG PO Q8H PRN for fever or pain, #30 TAB 0 Refills Prov: HALEY AQUINO STEAM HAMMER OPERATOR 08/13/25 Additional Instructions: FOLLOW-UP WITH PRIMARY CARE PROVIDER IN 1 TO 2 DAYS. TAKE MEDICATIONS DIRECTED HERE IN THE EMERGENCY ROOM. OKAY TO CONTINUE HOME MEDICATIONS UNLESS OTHERWISE DISCUSSED DURING YOUR VISIT IN THE EMERGENCY ROOM TODAY. RETURN TO YOUR NEAREST EMERGENCY ROOM IF SYMPTOMS WORSEN OR IF THERE IS NO IMPROVEMENT. CALL 911 IF YOU NEED IMMEDIATE ASSISTANCE. TAKE TYLENOL OR MOTRIN [id number] NEEDED AND IF NO CONTRAINDICATIONS ARE PRESENT. INCREASE ORAL HYDRATION. A WOUND CULTURE OR URINE CULTURE WAS ORDERED HERE IN THE EMERGENCY ROOM DEPARTMENT PLEASE FOLLOW-UP WITH PRIMARY CARE PROVIDER AND ADVISE THEM TO GET REPEAT PORTS FROM OUR FACILITY. IF YOU HAD ANY SWEETIE WRAP/SPLINTS THAT WERE APPLIED HERE, PLEASE DO NOT REMOVE THEM UNTIL YOU SEE YOUR PRIMARY CARE OR SPECIALTY. COOL COMPRESSES TO PAIN THREE TO 4 TIMES A DAY. TAKE IBUPROFEN NEEDED FOR PAIN. TRIPLE ANTIBIOTIC OINTMENT/[id number] 3 TIMES A DAY WITH BAND-AID FOR FIVE DAYS TO RIGHT ELBOW ABRASION DIET AND ACTIVITY TOLERATED FOLLOW UP WITH THE YOUR PRIMARY CARE DOCTOR NEEDED Referrals: ISMAEL PEARCE MD (PCP) Time of Disposition: 12:50 I have reviewed the case, and I agree with, Diagnosis and Plan HALEY AQUINO STEAM HAMMER OPERATOR Aug 13, 2025 11:58
[2025-08-13 12:03] VITALS: BP 138/78; PULSE 62; RESP 18; TEMP 97.8; O2SAT 97
[2025-08-13] MEDS: NEOMY SULF/BACITRA/POLYMYXIN B 1 EACH PACKET TP ONE (12:07)
--- NOTE | 2025-08-13 13:02 | HMCIMG ---
STUDY CR LEFT HAND, 3 VIEW HISTORY Left fifth finger pain status post fall TECHNIQUE Three-view radiographic examination of the left hand COMPARISON None provided FINDINGS Bones There is an oblique displaced fracture of the middle phalanx of the fifth digit. No additional acute fracture or aggressive osseous lesion is identified. Joints Joint spaces are preserved and alignment is maintained without dislocation. Soft tissues Soft tissue swelling and contusion are present about the fifth digit. No radiopaque foreign body is seen. IMPRESSION * Oblique displaced fracture of the middle phalanx of the left fifth digit with adjacent soft tissue contusion. * No additional acute fracture or dislocation of the left hand. /[place]
--- NOTE | 2025-08-13 13:07 | HMCIMG ---
EXAM: CR right elbow, 3 View. CLINICAL HISTORY: RIGHT ELBOW PAIN STATUS POST FALL WITH A ABRASION COMPARISON: None provided. FINDINGS: BONES: No acute fracture or aggressive appearing osseous lesion. JOINTS: The joint spaces appear within normal limits. No dislocation. No radiographic evidence of a joint effusion. SOFT TISSUES: The soft tissues are unremarkable. IMPRESSION: 1. No acute osseous injury. /[place]
--- NOTE | 2025-08-13 13:13 | HMCIMG ---
STUDY CR RIGHT SHOULDER, 2 VIEW HISTORY Right shoulder pain status post fall TECHNIQUE Two-view radiographic examination of the right shoulder COMPARISON None provided FINDINGS Bones No acute fracture or aggressive osseous lesion is identified. Joints Mild degenerative osteoarthrosis of the acromioclavicular and glenohumeral joints with subtle joint space narrowing and small marginal osteophytes. No dislocation is present. Soft tissues The periarticular soft tissues are unremarkable. No soft tissue calcification or gas is seen. IMPRESSION No acute fracture or dislocation. /[place]
== END 2025-08-13 12:55 | disposition home or self-care (01) ==
LOC: EDH 11:48
DX: S40.011A Contusion of right shoulder, initial encounter (principal); S50.01XA Contusion of right elbow, initial encounter; S60.222A Contusion of left hand, initial encounter; S50.311A Abrasion of right elbow, initial encounter; E78.00 Pure hypercholesterolemia, unspecified; I25.10 Atherosclerotic heart disease of native coronary artery without angina pectoris; Z79.02 Long term (current) use of antithrombotics/antiplatelets; Z79.82 Long term (current) use of aspirin; W01.0XXA Fall on same level from slipping, tripping and stumbling without subsequent striking against object, initial encounter; Z95.5 Presence of coronary angioplasty implant and graft; Y93.89 Activity, other specified; Y92.89 Other specified places as the place of occurrence of the external cause; Y99.8 Other external cause status
CPT/HCPCS: 73030; 73080; 73130; 99283